=== PATIENT | male | born 1945 | race Caucasian/White ===

== ENCOUNTER 2018-08-08 22:46 | Emergency (ER) | payer MEDICARE ==
--- OUTSIDE RECORDS SUMMARY | 2018-08-08 22:48 | XMS REPORT ---
Author Author Christian Vazquez [facility] eClinicalWorks Address Unknown Phone Unavailable Care Team Providers Care Internet Network Specialist Name Role Phone Christian Vazquez Unavailable Allergies, Adverse Reactions, Alerts Substance Reaction Event Type N.K.D.A. 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 Active Problem Pulmonary hypertension, unspecified I27.20 Active Problem Morbid (severe) obesity due to excess calories E66.01 Active Assessment Screening for cardiovascular disorders Z13.6 Active Assessment Type 2 diabetes mellitus with hyperglycemia E11.65 Active Assessment Morbid (severe) obesity due to excess calories E66.01 Active Assessment Arthropathy, 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 Active Problem Unspecified arthropathy, 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 Active Problem Swelling of limb 729.81 Active Assessment Pulmonary hypertension, unspecified I27.20 Active Problem Cardiomegaly 429.3 Active Assessment Hypertensive heart disease without heart failure I11.9 Active Problem 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 Medications Medication Code System Code Instructions Start Date End Date Status Dosage Omeprazole [facility] 62375852447 20 mg Orally twice a day (bid) Active 1 capsule Escitalopram Oxalate [facility] 36279901644 20 MG Orally Once a day Active 0.5 tablet Metformin HCl [facility] [address]-57 500 mg Orally Twice a day Active 2 tablet with meals Coreg [facility] 87857729983 3.125 MG Orally twice a day (bid) Active 1 tablet Lisinopril-Hydrochlorothiazide [facility] 92755393258 20-25 MG Orally once a day Active 1 tablet Aspirin [facility] 31832711952 81 MG Orally Once a day Active 1 tablet Vital Signs Date/Time: Feb 09, 2018 BMI 44.59 Index Weight 302 lbs Height 5 ft 9 in in Cardiac Monitoring Heart Rate 63 /min Blood Pressure Diastolic 62 mm Hg Blood Pressure Systolic 120 mm Hg Results No Known Results Summary Purpose eClinicalWorks Submission
--- OUTSIDE RECORDS SUMMARY | 2018-08-08 22:48 | XMS REPORT | Continuity of Care Document ---
Author Author [facility] Interface Address Unknown Phone Unavailable Problems Problem Status Onset Date Classification Date Reported Comments Source Benign hypertensive heart disease without heart failure Active Problem 02/16/2018 Christian Vazquez MD, [place] Arthropathy, unspecified Active Problem 02/16/2018 Christian Vazquez [place], [place] Morbid obesity Active Problem 02/16/2018 Christian Vazquez MD, [place] Body mass index 40.0-44.9, adult Active Problem 02/16/2018 Christian Vazquez MD, [place] Screening for cardiovascular disorders Active Problem 02/16/2018 Christian Vazquez MD, [place] Type 2 diabetes mellitus with hyperglycemia Active Problem 02/16/2018 Christian Vazuqez MD, [place] Hypertensive heart disease without heart failure Active Problem 02/16/2018 Christian Vazquez MD, [place] Other secondary pulmonary hypertension Active Problem 02/16/2018 Christian Vazquez MD, [place] Pulmonary hypertension, unspecified Active Problem 02/16/2018 Christian Vazqeuz [place], [place] Morbid obesity due to excess calories Active Problem 02/16/2018 Christian Vazquez [place], [place] Unspecified arthropathy, pelvic region and thigh Active Problem 02/16/2018 Christian Vazquez MD, [place] Swelling of limb Active Problem 02/16/2018 Christian Vazquez [place], [place] Cardiomegaly Active Problem 02/16/2018 Christian Vazquez MD, [place] Chronic pulmonary heart diseases- PAH Active Problem 02/16/2018 Christian Vazquez MD, [place] Medications Medication Details Route Status Patient Instructions Ordering Provider Order Date Source Coreg 1 tablet Orally Active 3.125 MG Orally twice a day (bid) George Vazquez MD, [place] Lisinopril-Hydrochlorothiazide 1 tablet Orally Active 20-25 MG Orally once a day George Vazquez MD, [place] Aspirin 1 tablet Orally Active 81 MG Orally Once a day George Vazquez MD, [place] Escitalopram Oxalate 0.5 tablet Orally Active 20 MG Orally Once a day Geogre Vazquez MDGAURANG Metformin HCl 2 tablet with meals Orally Active 500 mg Orally Twice a day George Vazquez MD, [place] Omeprazole 1 capsule Orally Active 20 mg Orally twice a day (bid) George Vazquez MD, [place] Metformin HCl 2 tablet with meals Orally Active 500 mg Orally Twice a day George Vazquez MD, [place] Coreg 1 tablet Orally Active 3.125 MG Orally twice a day (bid) George Vazquez MD, [place] Aspirin 1 tablet Orally Active 81 MG Orally Once a day George Vazquez MD, [place] Omeprazole 1 capsule Orally Active 20 mg Orally twice a day (bid) George Vazquez MD, [place] Lisinopril-Hydrochlorothiazide 1 tablet Orally Active 20-25 MG Orally once a day George Vazquez MD, [place] Escitalopram Oxalate 0.5 tablet Orally Active 20 MG Orally Once a day George Vazquez MD, [place] Allergies, Adverse Reactions, Alerts Substance Category Reaction Severity Reaction type Status Date Reported Comments Source N.K.D.A. Adverse Reaction Info Not Available Adverse Reaction Active 02/09/2018 Christian Vazquez MD, [place] Immunizations Immunization Date Given Site Status Last Updated Comments Source Results Order Name Results Value Reference Range Date Interpretation Comments Source Vital Signs Vital Sign Value Date Comments Source Weight 302 02/09/2018 Christian Vazquez [place], [place] Heart Rate 63 02/09/2018 Christian Vazquez [place], [place] Diastolic (mm Hg) 62 02/09/2018 Christian Vazquez MD, [place] Systolic (mm Hg) 120 02/09/2018 Christian Vazquez MD, [place] Weight 320 04/23/2016 Christian Vazquez MD, [place] Heart Rate 64 04/23/2016 Christian Vazquez MD, [place] Diastolic (mm Hg) 65 04/23/2016 Christian Vazquez MD, [place] Systolic (mm Hg) 130 04/23/2016 Christian Vazquez MD, [place] Encounters Location Location Details Encounter Type Encounter Number Reason For Visit Attending Provider ADM Date DC Date Status Source Christian Vazquez MD, [place] Follow-Up [id number] 04/23/2016 04/23/2016 Christian Vazquez MD, PA Nawar Tayyan, MD, PA Follow-Up [id number] 04/23/2016 04/23/2016 Christian Vazquez MD, [place] Christian Vazquez MD, PA echo/carotid/arterial dopplers [id number] 05/07/2016 05/07/2016 Christian Vazquez MD, [place] Procedures Procedure Code Date Perfomer Comments Source
--- OUTSIDE RECORDS SUMMARY | 2018-08-08 22:48 | XMS REPORT ---
Author Author Christian Vazquez [facility] [place] eClinicalWorks Address Unknown Phone Unavailable Care Team Providers Care Solidworks Designer Name Role Phone Christian Vazquez Unavailable Allergies, Adverse Reactions, Alerts Substance Reaction Event Type N.K.D.A. 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 Problem Arthropathy, 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 Active Problem Benign hypertensive heart disease without 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 Active Assessment Arthropathy, 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 Active Assessment Morbid (severe) obesity due to excess calories E66.01 Active Assessment 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 Active Assessment Hypertensive heart disease without heart failure I11.9 Active Medications Medication Code System Code Instructions Start Date End Date Status Dosage Coreg [facility] [address]-34 3.125 MG Orally twice a day (bid) Active 1 tablet Aspirin [facility] [address]-57 81 MG Orally Once a day Active 1 tablet Omeprazole [facility] [address]-16 20 mg Orally twice a day (bid) Active 1 capsule Lisinopril-Hydrochlorothiazide [facility] [address]-14 20-25 MG Orally once a day Active 1 tablet Escitalopram Oxalate [facility] [address]-72 20 MG Orally Once a day Active 0.5 tablet Social History Social History Element Qualifiers Date Reported Tobacco Use: . Are you a: former smoker quit in 1969 Apr 23, 2016 Marital Status: . Apr 23, 2016 Do you drink alcohol? . Status: No Apr 23, 2016 Occupation: . retired Apr 23, 2016 Vital Signs Date/Time: Apr 23, 2016 Weight 320 lbs Cardiac Monitoring Heart Rate 64 /min Blood Pressure Diastolic 65 mm Hg Blood Pressure Systolic 130 mm Hg Summary Purpose eClinicalWorks Submission
--- OUTSIDE RECORDS SUMMARY | 2018-08-08 22:48 | XMS REPORT ---
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 Medications Medication Code System Code Instructions Start Date End Date Status Dosage Coreg [facility] 14746257679 3.125 MG Orally twice a day (bid) Active 1 tablet Lisinopril-Hydrochlorothiazide [facility] 21521347191 20-25 MG Orally once a day Active 1 tablet Aspirin [facility] 68545077286 81 MG Orally Once a day Active 1 tablet Escitalopram Oxalate [facility] 91987001192 20 MG Orally Once a day Active 0.5 tablet Metformin HCl [facility] 35035708778 500 mg Orally Twice a day Active 2 tablet with meals Omeprazole [facility] 44623772853 20 mg Orally twice a day (bid) Active 1 capsule Results No Known Results Summary Purpose eClinicalWorks Submission
--- OUTSIDE RECORDS SUMMARY | 2018-08-08 22:48 | XMS REPORT ---
Author Author Christian Vazquez Organization eClinicalWorks Address Unknown Phone Unavailable Care Team Providers Care Attorney Lawyer Name Role Phone Christian Vazquez CP Unavailable Encounters Encounter Location Date Follow-Up Christian Vazquez [place], [place] Apr 23, 2016 echo/carotid/arterial dopplers Christian Vazquez MD, [place] May 07, 2016 Problems Problem Type Condition ICD-9 Code [...] heart disease without 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 Active Social History Social History Element Qualifiers Date Reported Tobacco Use: . Are you a: former smoker quit in 1968Apr 23, 2016 Marital Status: . Apr 23, 2016 Do you drink alcohol? . Status: No Apr 23, 2016 Occupation: . retired Apr 23, 2016 Summary Purpose eClinicalWorks Submission
== END 2018-08-08 23:20 | disposition home or self-care (01) ==
LOC: ER 22:46 → FSED 23:20
DX: S91.115A Laceration without foreign body of left lesser toe(s) without damage to nail, initial encounter (principal); W45.8XXA Other foreign body or object entering through skin, initial encounter; I10 Essential (primary) hypertension
CPT/HCPCS: 99283

== ENCOUNTER 2018-10-07 12:33 | Outpatient (RCR) | payer MEDICARE | END 2018-11-01 | LOC: PT 12:33 | PROVIDERS: ATTEND Specialist | DX: M25.561 Pain in right knee (principal); M62.81 Muscle weakness (generalized) ==

== ENCOUNTER 2022-07-14 09:49 | Outpatient (RCR) | payer MEDICARE | END 2022-08-04 | LOC: PT 09:49 | PROVIDERS: ATTEND Neurological Surgery | DX: M50.020 Cervical disc disorder with myelopathy, mid-cervical region, unspecified level (principal) ==